=== PATIENT | female | born 1985 | race Two or more races ===

== ENCOUNTER 2022-07-03 13:36 | Emergency (ER) | payer MEDICAID, OTHER ==
[~2022-07-03] VITALS: Ht 172.7 cm; Wt 96.7 kg
[2022-07-03 14:32] VITALS: BP 140/77
== END 2022-07-03 14:45 | disposition left against medical advice (07) ==
LOC: ER 13:36
DX: N89.8 Other specified noninflammatory disorders of vagina (principal); Z53.21 Procedure and treatment not carried out due to patient leaving prior to being seen by health care provider